=== PATIENT | female | born 1965 | race African-American/Black ===

== ENCOUNTER 2019-08-25 14:20 | Inpatient (IN) | payer MEDICAID ==
[~2019-08-25] VITALS: Ht 160 cm; Wt 66.7 kg
[2019-08-25] MEDS ORDERED: SODIUM CHLORIDE 0.9% 1,000 ML IV ONE (15:03)
[2019-08-25 15:15] LABS: BASOPHILS % 1.3 % (0.0-2.0); EOSINOPHILS % 1.3 % (0.0-5.0); HEMATOCRIT. 42.2 % (36.0-48.0); HEMOGLOBIN. 13.8 g/dL (12.0-16.0); LYMPHOCYTES % 38.1 % (20.0-50.0); MEAN CORPUSCULAR HEMOGLOBIN 27.5 pg (28.0-32.0); MEAN CORPUSCULAR VOLUME 84.3 fL (81.0-99.0); MEAN PLATELET VOLUME 8.2 fl (7.4-10.4); MONOCYTES % 6.8 % (2.0-8.0); NEUTROPHILS % 52.5 % (40.0-76.0); PLATELET 257 x1000/uL (130-400); RED BLOOD CELL COUNT 5.01 mill/uL (4.2-5.4); RED CELL DISTRIBUTION WIDTH 13.9 % (11.6-14.6)
[2019-08-25] MEDS ORDERED: LORAZEPAM 2MG/ML CPJ IV ONE (15:15)
[2019-08-25] MEDS ORDERED: ONDANSETRON HCL 4MG/2ML INJ IV ONE (15:15)
[2019-08-25 15:20] LABS: CHLORIDE 105 mEq/L (98-107)
[2019-08-25 15:22] LABS: INR 1.1; PROTHROMBIN TIME 11.2 sec (9.6-11.0)
[2019-08-25] MEDS ORDERED: POTASSIUM CHLORIDE 20MEQ TABLET SR PO ONE (16:30)
[2019-08-25] MEDS ORDERED: ASPIRIN 325MG EC TABLET PO ONE (19:00)
[2019-08-25 22:55] VITALS: BP 136/84
[2019-08-26] MEDS ORDERED: CLONIDINE 0.1MG TABLET PO PRN
[2019-08-26] MEDS ORDERED: IPRATROPIUM/ALBUTEROL 0.5-3(2.5)MG/3ML NEB HHN PRN
[2019-08-26] MEDS ORDERED: HYDROCODONE/ACETAMINOPHEN 10/325MG TABLET PO PRN
[2019-08-26 00:43] VITALS: BP 136/84
[2019-08-26] MEDS ORDERED: CLON0.2T MT (01:33)
[2019-08-26] MEDS ORDERED: B50 MT (01:34)
[2019-08-26] MEDS ORDERED: GABA800T97 MT (01:34)
[2019-08-26] MEDS ORDERED: LISI2.5T47 MT (01:35)
[2019-08-26 04:00] VITALS: BP 121/71
[2019-08-26] MEDS: GABAPENTIN 400MG CAPSULE PO SCH ×3 (05:14→21:35)
[2019-08-26 07:15] LABS: CHLORIDE 107 mEq/L (98-107)
[2019-08-26 07:25] LABS: HEMATOCRIT. 39.7 % (36.0-48.0); HEMOGLOBIN. 12.9 g/dL (12.0-16.0); MEAN CORPUSCULAR HEMOGLOBIN 27.7 pg (28.0-32.0); MEAN CORPUSCULAR VOLUME 85.1 fL (81.0-99.0); MEAN PLATELET VOLUME 8.7 fl (7.4-10.4); PLATELET 230 x1000/uL (130-400); RED BLOOD CELL COUNT 4.66 mill/uL (4.2-5.4); RED CELL DISTRIBUTION WIDTH 13.9 % (11.6-14.6)
[2019-08-26 07:32] LABS: LDL CHOLESTEROL 75 mg/dL (5-100)
[2019-08-26 07:34] LABS: HDL CHOLESTEROL 40 mg/dL (40-59)
[2019-08-26 08:00] VITALS: BP 114/67
[2019-08-26] MEDS ORDERED: POTASSIUM CHLORIDE 20MEQ TABLET SR PO SCH (09:45)
[2019-08-26] MEDS ORDERED: ONDANSETRON HCL 4MG/2ML INJ IV PRN (09:45)
[2019-08-26] MEDS: ASPIRIN 325MG TABLET PO SCH (10:39)
[2019-08-26 11:19] LABS: PLATELET ESTIMATE NORMAL
[2019-08-26 12:00] VITALS: BP 134/80
[2019-08-26 16:00] VITALS: BP 129/78
[2019-08-26 18:39] LABS: CLARITY URINE CLEAR (CLEAR); COLOR URINE YELLOW (YELLOW); KETONES URINE NEGATIVE (NEGATIVE); LEUKOCYTE ESTERASE URINE TRACE (NEGATIVE); NITRITE URINE NEGATIVE (NEGATIVE); OCCULT BLOOD URINE NEGATIVE (NEGATIVE); PH URINE 6.5 (4.5-8.0); PROTEIN URINE NEGATIVE (NEGATIVE); SPECIFIC GRAVITY URINE 1.027 (1.005-1.030)
[2019-08-26 18:53] LABS: *AMPHETAMINES SCREEN URINE NEGATIVE (NEGATIVE); *BARBITURATES SCREEN URINE NEGATIVE (NEGATIVE); *BENZODIAZEPINES SCREEN URINE NEGATIVE (NEGATIVE); *COCAINE SCREEN URINE PRESUMTIVE POSITIVE (NEGATIVE); METHADONE URINE SCREEN NEGATIVE (NEGATIVE)
[2019-08-26 18:54] LABS: CANNABINOID URINE SCREEN NEGATIVE (NEGATIVE); OPIATES URINE SCREEN NEGATIVE (NEGATIVE); PHENCYCLIDINE URINE SCREEN NEGATIVE (NEGATIVE)
[2019-08-26 20:00] VITALS: BP 154/82
[2019-08-27] VITALS: BP 138/77
[2019-08-27 04:00] VITALS: BP 131/75
[2019-08-27] MEDS: GABAPENTIN 400MG CAPSULE PO SCH ×3 (06:26→21:49)
[2019-08-27 07:34] LABS: BASOPHILS % 0.5 % (0.0-2.0); HEMATOCRIT. 39.3 % (36.0-48.0); LYMPHOCYTES % 47.2 % (20.0-50.0); MEAN CORPUSCULAR HEMOGLOBIN 27.8 pg (28.0-32.0); MEAN PLATELET VOLUME 8.1 fl (7.4-10.4); MONOCYTES % 8.2 % (2.0-8.0); NEUTROPHILS % 41.1 % (40.0-76.0); PLATELET 234 x1000/uL (130-400); RED BLOOD CELL COUNT 4.68 mill/uL (4.2-5.4); RED CELL DISTRIBUTION WIDTH 13.4 % (11.6-14.6)
[2019-08-27 07:39] LABS: CHLORIDE 107 mEq/L (98-107)
[2019-08-27 08:00] VITALS: BP_SYST 152; BP_SYST 154; BP_DIAS 84; BP_DIAS 90
[2019-08-27] MEDS: MECLIZINE 25MG TABLET PO PRN (10:51)
[2019-08-27] MEDS: ASPIRIN 325MG TABLET PO SCH (10:51)
[2019-08-27 12:00] VITALS: BP 116/86
[2019-08-28] VITALS: BP 141/74
[2019-08-28 04:00] VITALS: BP 148/86
[2019-08-28] MEDS: GABAPENTIN 400MG CAPSULE PO SCH ×3 (05:05→21:12)
[2019-08-28 06:47] LABS: CHLORIDE 107 mEq/L (98-107)
[2019-08-28 08:17] VITALS: BP 166/109
[2019-08-28] MEDS: ASPIRIN 325MG TABLET PO SCH (09:50)
[2019-08-28] MEDS: MECLIZINE 25MG TABLET PO PRN (09:50)
[2019-08-28 12:45] VITALS: BP_SYST 136; BP_SYST 146; BP_DIAS 85; BP_DIAS 92
[2019-08-28] MEDS: LISINOPRIL 40MG TABLET PO SCH (14:18)
[2019-08-28] MEDS: MELOXICAM 7.5MG TABLET PO SCH (14:18)
[2019-08-28 16:50] VITALS: BP 144/82
[2019-08-28 20:00] VITALS: BP_SYST 143; BP_SYST 148; BP_SYST 155; BP_DIAS 103; BP_DIAS 82; BP_DIAS 85
[2019-08-28] MEDS: CLONIDINE 0.1MG TABLET PO SCH (21:13)
[2019-08-29] VITALS (7 sets, daily range): BP systolic 124–169; BP diastolic 75–89
[2019-08-29] MEDS: GABAPENTIN 400MG CAPSULE PO SCH ×3 (05:47→21:24)
[2019-08-29 06:09] LABS: HIV SCREEN 4G Non Reactive (Non Reactive)
[2019-08-29] MEDS: ASPIRIN 325MG TABLET PO SCH (08:33)
[2019-08-29] MEDS: LISINOPRIL 40MG TABLET PO SCH (08:33)
[2019-08-29] MEDS: CLONIDINE 0.1MG TABLET PO SCH ×2 (08:34→21:24)
[2019-08-29] MEDS: MELOXICAM 7.5MG TABLET PO SCH (08:34)
[2019-08-30] VITALS: BP 108/61
[2019-08-30 04:00] VITALS: BP 107/62
[2019-08-30] MEDS: GABAPENTIN 400MG CAPSULE PO SCH (06:17)
[2019-08-30 08:00] VITALS: BP 137/86
[2019-08-30] MEDS: LISINOPRIL 40MG TABLET PO SCH (08:59)
[2019-08-30] MEDS: MELOXICAM 7.5MG TABLET PO SCH (08:59)
[2019-08-30] MEDS: CLONIDINE 0.1MG TABLET PO SCH (08:59)
[2019-08-30] MEDS: ASPIRIN 325MG TABLET PO SCH (08:59)
[2019-08-30 10:50] VITALS: BP 137/86
== END 2019-08-30 12:43 | disposition home or self-care (01) | DRG 48 ==
LOC: ER 14:20 → 6WST 18:55 → ENRESERV 21:18
PROVIDERS: ADMIT Internal Medicine; ATTEND Internal Medicine
DX: G90.8 Other disorders of autonomic nervous system (principal); E44.1 Mild protein-calorie malnutrition; E87.6 Hypokalemia; F14.10 Cocaine abuse, uncomplicated; F17.200 Nicotine dependence, unspecified, uncomplicated; F41.9 Anxiety disorder, unspecified; I10 Essential (primary) hypertension; H53.2 Diplopia; J45.909 Unspecified asthma, uncomplicated; Z86.73 Personal history of transient ischemic attack (TIA), and cerebral infarction without residual deficits; Z71.6 Tobacco abuse counseling; Z71.51 Drug abuse counseling and surveillance of drug abuser; Z68.26 Body mass index [BMI] 26.0-26.9, adult
CPT/HCPCS: 36415; 70551; 71045; 80048; 80061; 80305; 81003; 83036; 83880; 84484; 87389; 93005; 95816; 97116; 97162; 99285; 99406; C1893; J2060; J2405; J7030; J8597